=== PATIENT | female | born 1950 | race African-American/Black ===

== ENCOUNTER 2018-04-02 14:20 | Emergency (ER) | payer OTHER ==
[~2018-04-02] VITALS: Ht 170.2 cm; Wt 81.6 kg
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
[2018-04-02 16:01] VITALS: BP 165/102
== END 2018-04-02 16:10 | disposition home or self-care (01) ==
LOC: FSED 14:20
DX: G89.11 Acute pain due to trauma (principal); M25.512 Pain in left shoulder; M79.642 Pain in left hand; V44.5XXA Car driver injured in collision with heavy transport vehicle or bus in traffic accident, initial encounter; Y92.488 Other paved roadways as the place of occurrence of the external cause; I10 Essential (primary) hypertension; E03.9 Hypothyroidism, unspecified; K21.9 Gastro-esophageal reflux disease without esophagitis
CPT/HCPCS: 99284